=== PATIENT | female | born 1995 | race Caucasian/White ===

== ENCOUNTER → 2019-06-14 | Outpatient (CLI) | payer SELFPAY ==
--- NOTE | 2019-06-15 11:09 | KCIC ---
EXAM: PA and Lateral Views of the Chest DATE: 06/14/2019 12:00 AM INDICATION: ASTHMA, BRONCHITIS, COUGH COMPARISON: No Prior FINDINGS/ IMPRESSION: The heart is not enlarged. Mediastinal and hilar contours are normal. Mild bilateral bronchiectasis with airspace opacities particularly in the right lung base in bilateral upper lungs likely developing consolidative process such as pneumonia. No pleural effusion or pneumothorax. Electronically signed by: Reinier Ha MD (06/15/2019 11:05 AM) [id number]
== END | disposition home or self-care (01) ==
LOC: KCIC 15:01
PROVIDERS: ATTEND Internal Medicine Allergy & Immunology
DX: J47.9 Bronchiectasis, uncomplicated (principal); J45.909 Unspecified asthma, uncomplicated
CPT/HCPCS: 71046

== ENCOUNTER → 2019-07-05 | Outpatient (CLI) | payer SELFPAY ==
--- NOTE | 2019-07-05 13:22 | KCIC ---
CHEST PA LATERAL History: Continued right-sided pressure, pneumonia Comparison: June 14, 2019 Findings: 2 views of the chest are submitted. There is some persistent patchy reticular and airspace opacity bilaterally, decreased at the right lung base in the interval. There is no pneumothorax or dependent pleural fluid. Heart size is stable, within normal limits. Impression: 1. There is decreased right base airspace opacity, although some persistent airspace and reticular opacity bilaterally suggestive of residual infiltrate. Electronically signed by: Dereck Pritchard MD (07/05/2019 1:19 PM) [id number]
== END | disposition home or self-care (01) ==
LOC: KCIC 11:54
PROVIDERS: ATTEND Internal Medicine Allergy & Immunology
DX: J98.4 Other disorders of lung (principal); J18.9 Pneumonia, unspecified organism
CPT/HCPCS: 71046